=== PATIENT | female | born 1945 | race Caucasian/White ===

== ENCOUNTER 2023-10-04 08:45 | Outpatient (OUT) | payer MEDICARE, OTHER, SELFPAY ==
[2023-10-04 09:30] LABS: Sodium Urine Random 18 mmol/L (30-90)
[2023-10-04 10:24] LABS: Percent Iron Saturation 38.4 %
[2023-10-04 10:26] LABS: Albumin Level 4.2 g/dL (3.4-5.0); BUN Creatinine Ratio 16.4; Calcium 9.5 mg/dL (8.5-10.1); Carbon Dioxide 27.9 mmol/L (21.0-32.0); Chloride 94 mmol/L (98-107); Estimated GFR (African America >60 (>=60); Estimated GFR (Non-African Ame >60 (>=60); Glucose 117 mg/dL (74-106); Magnesium 1.5 mg/dL (1.8-2.4); Phosphorus 3.7 mg/dL (2.6-4.7); Potassium 3.9 mmol/L (3.5-5.1); Sodium 131 mmol/L (136-145); Thyroid Stimulating Hormone 1.389 uIU/mL (0.358-3.740)
[2023-10-05 04:08] LABS: Ferritin 318 ng/mL (15-150)
[2023-10-05 07:08] LABS: Vitamin B12 506 pg/mL (232-1245)
[2023-10-06 15:07] LABS: Osmolality, Urine 344 mOsmol/kg (.)
[2023-10-07 13:10] LABS: Albumin 4.2 g/dL (2.9-4.4); Alpha-1-Globulin 0.3 g/dL (0.0-0.4); Alpha-2-Globulin 0.8 g/dL (0.4-1.0); Free Kappa Lt Chains,S 13.9 mg/L (3.3-19.4); Free Lambda Lt Chains,S 10.3 mg/L (5.7-26.3); Gamma Globulin 0.7 g/dL (0.4-1.8); Immunoglobulin A, Qn, Serum 156 mg/dL (64-422); Immunoglobulin G, Qn, Serum 847 mg/dL (586-1602); Immunoglobulin M, Qn, Serum 37 mg/dL (26-217); Kappa/Lambda Ratio,S 1.35 (0.26-1.65); Protein, Total 7.1 g/dL (6.0-8.5)
== END 2023-10-04 08:46 | disposition home or self-care (01) ==
LOC: LAB 08:52
PROVIDERS: PCP Student in an Organized Health Care Education/Training Program; Visit Provider Internal Medicine
DX: E87.1 Hypo-osmolality and hyponatremia (principal); I10 Essential (primary) hypertension; E78.5 Hyperlipidemia, unspecified; D64.9 Anemia, unspecified
CPT/HCPCS: 36415; 80069; 82533; 82607; 82728; 82746; 82784; 83521; 83540; 83550; 83735; 83935; 84155; 84156; 84165; 84166; 84300; 84443; 86335